=== PATIENT | female | born 1960 | race Caucasian/White ===

== ENCOUNTER → 2018-01-05 | Outpatient (CLI) | payer OTHER ==
[~2018-01-05] MED LIST: ACE3 PO; ASPI-292 PO; AZI250 PO; CEP500 PO; CODE60TA2 PO; D ME PO; ESTR-25 PO; GUALA600 PO; HYDR473S4 PO; LEV500 PO; LEVO75TA68 PO; NORT75CA PO; PHEN120S16 PO; PRE20 PO; PSE30 PO; THYR30TA21 PO; THYROID MED
== END ==
LOC: MAMO 01:29
PROVIDERS: ATTEND Nurse Practitioner Family
DX: Z12.31 Encounter for screening mammogram for malignant neoplasm of breast (principal)

== ENCOUNTER → 2018-01-20 | Outpatient (CLI) | payer OTHER ==
--- NOTE | 2018-01-20 13:49 | RADIOLOGY IMAGING REPORT ---
FACILITY: [facility] [place] PATIENT NAME: CLAU BRIONES : [id number] MR: [id number] V: [id number] EXAM DATE: [id number] ORDERING PHYSICIAN: RODOLFO VALENTE TECHNOLOGIST: Carolyn Naqvi PROCEDURE:BILATERAL DIGITAL SCREENING MAMMOGRAM WITH CAD ASSISTED INTERPRETATION & 3D TOMOSYNTHESIS COMPARISON:Prior mammogram 12/26/16, 02/22/15 & 01/11/14. INDICATIONS:SCREENING FINDINGS: The breast tissue demonstrates scattered fibroglandular densities. Scattered asymmetries are stable. There is no dominant mass, suspicious cluster of microcalcifications or persistent areas of architectural distortion. DIAGNOSTIC CATEGORY 1--NEGATIVE. RECOMMENDATIONS: ROUTINE MAMMOGRAM AND CLINICAL EVALUATION IN 1 YEAR. IMPRESSION: BIRADS 1: Negative. Dictated by: Socrates Doss M.D. on 01/20/2018 at 12:03 Transcribed by: MARIANO on 01/20/2018 at 13:09 Approved by: Socrates Doss M.D. on 01/20/2018 at 13:48 [facility]
== END ==
LOC: MAMO 01:53
PROVIDERS: ATTEND Family Medicine
DX: Z12.31 Encounter for screening mammogram for malignant neoplasm of breast (principal)
CPT/HCPCS: 77063; 77067

== ENCOUNTER → 2018-12-21 | Outpatient (CLI) | payer OTHER ==
--- NOTE | 2018-12-21 09:02 | RADIOLOGY IMAGING REPORT ---
FACILITY: [facility] PATIENT NAME: Tova Gomez : 1960 MR: [id number] V: [id number] EXAM DATE: ORDERING PHYSICIAN: JUSTINE SANCHEZ TECHNOLOGIST: Location: [facility] Patient: Tova Gomez : 1960 Visit/Account:[id number] Date of Sevice: 12/21/2018 MRI left knee without contrast Indication: Knee pain. Possible Nieves's cyst. Comparison: None available. Technique: Multiplanar, multisequence MRI examination is performed of the left knee without contrast. Findings: Examination of the medial compartment demonstrates a complex tear of the body and the posterior horn of the medial meniscus. There is a large radial component involving the posterior horn near the poste rior root. There is horizontal tearing extending along the posterior horn into the medial meniscal vilma dy. There is medial meniscal extrusion. Partial-thickness chondrosis is seen along the central and po sterior weightbearing surfaces of the medial femoral condyle. Examination of the lateral compartment demonstrates focal inner margin fraying of the lateral meniscu s at the junction of the body and anterior horn. No well-defined tear or displaced fragment. Shallow chondrosis involves the weightbearing surfaces of the condyle. Examination of the patellofemoral compartment demonstrates severe chondrosis involving the superior m argin of the medial patellar surface with subchondral edema-like signal identified. This extends towa rds the median ridge of the patella. The trochlear surfaces are maintained. ACL and PCL are intact. The MCL is intact. The lateral collateral ligament complex is maintained. The extensor mechanism is intact. A small to intermediate joint effusion is seen. This extends into a small lobulated popliteal cyst. T here is semimembranosus insertional tendinopathy on the tibia. No evidence of tear. IMPRESSION: 1. Complex tear of the body and posterior horn of the left knee medial meniscus with a large radial t ear near the posterior root with associated medial meniscal extrusion. See full discussion above. 2. 3 compartment chondrosis/osteoarthritis of the left knee with chondrosis most pronounced along the medial patellar surface. 3. Small to intermediate joint effusion extending into a lobulated popliteal cyst. 4. Focal inner margin fraying of the lateral meniscus at the junction of the body and anterior horn. Report Dictated By: Mahamed Pearl at 12/21/2018 8:49 AM Report E-Signed By: Mahamed Pearl at 12/21/2018 8:56 AM WSN:[id number]
== END ==
LOC: MRI 07:17
PROVIDERS: ATTEND Orthopaedic Surgery
DX: S83.242A Other tear of medial meniscus, current injury, left knee, initial encounter (principal); M17.12 Unilateral primary osteoarthritis, left knee; M25.462 Effusion, left knee

== ENCOUNTER 2019-01-06 19:57 | Emergency (ER) | payer OTHER ==
--- NOTE | 2019-01-06 20:06 | ER Report ---
History and Physical Time Seen By MD: 20:03 Hx. of Stated Complaint: PT REPORTS SWELLING IN L FOOT, MULTIPLE ORTHOPEDIC ISSUES RECENTLY, JUST SPENT 10HOURS IN THE CAR, DENIES OTHER S/S HPI/ROS CHIEF COMPLAINT: Left foot swelling HISTORY OF PRESENT ILLNESS: This is a 58-year-old female presents to the e mergency department with her for swelling of the left foot. Patient states she spent about 10 hours in her car today driving back from [place], when she got home she had no pain, she eventually looked down at her feet and noticed her left foot was swollen. She became concerned and decided come in for an evaluation. She also recently diagnosed with a left Nieves cyst, left meniscus injury, left plantar fasciitis, she also within last 2 weeks has had an ultrasound of the left lower leg which was negative for DVT, she also had an MRI. She denies fevers or chills. She denies pain in the foot, ankle or calf. She also states that since having her legs elevated on the gurney in the ER the edema has decreased. REVIEW OF SYSTEMS: Respiratory: No cough, no dyspnea. Cardiovascular: No chest pain, no palpitations. Gastrointestinal: No vomiting, no abdominal pain. Musculoskeletal: As above. Allergies: Coded Allergies: Tetanus Vaccines and Toxoid (Verified Allergy, Severe, 01/06/19) NSAIDS (Non-Steroidal Anti-Inflamma (Verified Allergy, Mild, 01/06/19) ibuprofen (Verified Allergy, Mild, 01/06/19) latex (Verified Allergy, Mild, 01/06/19) paroxetine (Verified Allergy, Mild, 01/06/19) sertraline (Verified Allergy, Mild, 01/06/19) Uncoded Allergies: WATERMELON (Allergy, Severe, RN DID NOT SPECIFY REACTION, 01/03/12) BANDAIDS (Allergy, Mild, 02/22/08) Home Meds Reported Medications Thyroid (Indore Thyroid) 30 Mg Tablet, 30 MG PO, 0 Refills 05/09/10 Nortriptyline Hcl (Pamelor) 75 Mg Capsule, 150 MG PO 05/09/10 Discontinued Reported Medications Acetaminophen/Codeine (Tylenol #3 300-30 Mg) 1 Ea Tab, 2 EA PO Q4-6H, 0 Refills 1-2 TABLETS 05/09/10 Past Medical/Surgical History Patient has a past medical and surgical history of heart murmur, asthma, wears glasses, hypothyroidism, cervical cancer, cholecystectomy, shoulder surgery, rest augmentation, left foot plantar fasciitis, left Nieves's cyst, left meniscus tear. Reviewed Nurses Notes: Yes Hx Substance Use Disorder: No Hx Alcohol Use: No Constitutional Vital Sign - Last 24 Hours 01/06/19 01/06/19 20:00 20:35 Temp 97.8 Pulse 84 78 Resp 16 16 B/P (MAP) 141/67 141/67 (91) Pulse Ox 92 91 O2 Delivery Room Air Room Air Physical Exam General Appearance: The patient is alert, has no immediate need for airway protection and no current signs of toxicity. Eyes: Pupils equal and round no injection. Respiratory: Chest is non tender, lungs are clear to auscultation. Cardiac: regular rate and rhythm. Faint systolic murmur, no clicks or rubs. Gastrointestinal: Abdomen is soft and non tender, no masses, bowel sounds normal. Musculoskeletal: Neck: Neck is supple and non tender. Extremities have full range of motion and are non tender. Skin: Nonpitting edema to the left foot with mild edema to the ankle, no pain, no erythema or cellulitis. DIFFERENTIAL DIAGNOSIS: After history and physical exam differential diagnosis was considered for DVT, dependent edema, cellulitis, osteoarthritis, gout. Medical Decision Making ED Course/Re-evaluation ED Course The patient was admitted to room. A history of physical were obtained. Differential diagnoses were considered. After thorough evaluation of the patient, did determine the patient likely has dependent edema from her long drive, she recently had an ultrasound which was negative for DVT, she has a known Nieves's cyst on the left leg, left meniscus tear, left plantar fasciitis, patient has no pain, there was no erythema, no cellulitis, I did also tell the patient about the potential of a DVT, she will elevate her foot, use Sesar wrap to help with some of the erythema, should she have increased swelling, pain or any other concerning findings which include shortness of breath, she'll return to the emergency department immediately for reevaluation. Patient is agreeable with this plan care and discharged home. Decision to Disposition Date: Jan 06, 2019 Decision to Disposition Time: 20:28 Depart Departure Latest Vital Signs Vital Signs Date Time Temp Pulse Resp B/P (MAP) Pulse Ox O2 Delivery O2 Flow Rate FiO2 01/06/19 20:35 78 16 141/67 (91) 91 Room Air 01/06/19 20:00 97.8 Impression: Primary Impression: Edema of left foot Condition: Improved Disposition: HOME OR SELF-CARE Referrals: RODOLFO VALENTE MD (PCP) 1 Week Patient Instructions: Leg Edema (ED) Additional Instructions: As we discussed, please keep the foot elevated to the level of the heart, this will help with the edema. Adjust the Sesar wrap to the foot as needed, this will help with the edema as well. Return immediately for pain in the foot with increased swelling, redness, fevers or any other concerns. Follow-up with your primary care provider if no improvement within the next week. ED well-rounded meal. When traveling, be sure to get out of the car every 1-2 hours, this will help with the edema. Return to the ER for any concerns or worsening symptoms. HAMIDA BUSTAMANTE [employer]ATOR-[employer] Jan 06, 2019 20:06
[2019-01-06 20:35] VITALS: BP 141/67
== END 2019-01-06 20:36 | disposition home or self-care (01) ==
LOC: ER 20:22
DX: M25.475 Effusion, left foot (principal)
CPT/HCPCS: 99282